=== PATIENT | male | born 1990 | race African-American/Black ===

== ENCOUNTER 2019-03-04 23:34 | Emergency (ER) | payer OTHER ==
[~2019-03-04] VITALS: Ht 185.4 cm; Wt 98.0 kg
[2019-03-05] MEDS ORDERED: CLONIDINE 0.2MG TABLET PO ONE (01:15)
[2019-03-05] MEDS ORDERED: QUETIAPINE FUMARATE 25MG TABLET PO ONE (01:15)
[2019-03-05 02:03] VITALS: BP 159/84
== END 2019-03-05 02:05 | disposition home or self-care (01) ==
LOC: ER 23:34
DX: F31.9 Bipolar disorder, unspecified (principal); F17.290 Nicotine dependence, other tobacco product, uncomplicated
CPT/HCPCS: 99283